=== PATIENT | female | born 1980 | race Caucasian/White ===

== ENCOUNTER 2017-07-14 14:52 | Emergency (ER) | payer BC ==
[2017-07-14 15:07] VITALS: BP 136/86
--- NOTE | 2017-07-14 15:08 | UC ---
FLU HPI - HPI Summary HPI Summary: Pt presents with sore throat, body aches, dry cough, and fatigue since yesterday. She tells me that she has co-workers who have been out sick with the flu and she would like to be tested. She has been taking tylenol for her symptoms with good relief. Denies fever, chills, SOB, chest pain, abdominal pain , n/v/d/c. - History of Current Complaint Chief Complaint: UCGeneralIllness Stated Complaint: FLU SYMPTOMS Time Seen by Provider: 07/14/17 15:08 Hx Obtained From: Patient Hx Last Menstrual Period: 07/07/17 Severity Currently: Moderate Severity Initially: Moderate Pain Intensity: 5 Pain Scale Used: 0-10 Numeric - Allergy/Home Medications Allergies/Adverse Reactions: Allergies Allergy/AdvReac Type Severity Reaction Status Date / Time pregabalin [From Lyrica] Allergy Swelling Verified 07/14/17 14:56 Of Face,Lips,& Throat Home Medications: Home Medications Cetirizine* [ZyrTEC 10 MG TAB*] 10 mg PO DAILY 07/14/17 [History Confirmed 07/14] LORazepam TAB(*) [Ativan 0.5 MG TAB (*)] 0.5 mg PO BEDTIME PRN 07/14/17 [ History Confirmed 07/14/17] raNITIdine HCl [Ranitidine HCl] 150 mg PO BID 07/14/17 [History Confirmed ] PMH/Surg Hx/FS Hx/Imm Hx - Additional Past Medical History Additional PMH: Allergies Previously Healthy: Yes - Surgical History Surgical History: Yes Surgery Procedure, Year, and Place: RT BREAST BIOPSY X2 - Family History Known Family History: Positive: Hypertension - Social History Occupation: Employed Full-time Lives: With Family Alcohol Use: Occasionally Substance Use Type: None Smoking Status (MU): Never Smoked Tobacco Review of Systems Constitutional: Fatigue, Other - Body aches Skin: Negative Eyes: Negative ENT: Sore Throat Respiratory: Cough Cardiovascular: Negative Gastrointestinal: Negative Neurological: Negative Psychological: Negative All Other Systems Reviewed And Are Negative: Yes Physical Exam - Summary Physical Exam Summary: GENERAL: NAD. WDWN. No pain distress. SKIN: No rashes, sores, ulcers, masses, lesions. HEENT: Head: AT/NC Eyes: EOM intact. Conjunctiva clear without inflammation or discharge. Ears: Hearing grossly normal. TMs intact, no bulging, erythema, or edema. Nose: Nasal mucosa pink and moist. NTTP maxillary and frontal sinus. Throat: Posterior oropharynx without exudates, erythema, or tonsillar enlargement. Uvula midline. NECK: Supple. Nontender. No lymphadenopathy. CHEST: CTAB. No r/r/w. No accessory muscle use. Breathing comfortably and in no distress. CV: RRR. Without m/r/g. Pulses intact. Brisk cap refill. NEURO: Alert. CN II-XII grossly intact. PSYCH: Age appropriate behavior. Triage Information Reviewed: Yes Vital Signs: Initial Vital Signs Temp 97.9 F 07/14/17 15:00 Pulse 76 07/14/17 15:00 Resp 16 07/14/17 15:00 BP 136/86 07/14/17 15:00 Pulse Ox 100 07/14/17 15:00 Flu Course/Dx - Course Course Of Treatment: POC flu negative. Advised rest, fluids, and tylenol prn. - Differential Dx/Diagnosis Provider Diagnoses: Viral syndrome Discharge - Discharge Plan Condition: Stable Disposition: HOME Patient Education Materials: Viral Syndrome (ED) Referrals: Brunilda Saucedo MD [Primary Care Provider] - Additional Instructions: If you develop a fever, shortness of breath, chest pain, new or worsening symptoms - please call your PCP or go to the ED. Your blood pressure was high at todays visit. Please see your primary provider within 4 weeks for recheck and re-evaluation.
== END 2017-07-14 15:37 | disposition home or self-care (01) ==
LOC: UCEAST 14:52
DX: B34.9 Viral infection, unspecified (principal); Z88.8 Allergy status to other drugs, medicaments and biological substances
CPT/HCPCS: 87502; 99211; G0463

== ENCOUNTER 2017-08-19 10:13 | Emergency (ER) | payer BC ==
[2017-08-19 10:26] VITALS: BP 134/75
--- NOTE | 2017-08-19 10:45 | UC ---
Dental HPI - HPI Summary HPI Summary: 37 y/o female presents to the urgent care c/o toothache in her left upper jaw since last night. Pt states her pain is from a broken molar which also has gross decay and caries. pain 8/10 associated w/ mild swelling. Pt called dentist this morning an her appt is for 08/30/2017. she has taken Aleve PO to alleviate symptoms, Last taken at 0800AM. Pt denies fever, SOB, trismus, chest pain, abdominal pain, N/V/D. - History of Current Complaint Chief Complaint: UCDentalProblem Stated Complaint: DENTAL PAIN Time Seen by Provider: 08/19/17 10:35 Hx Obtained From: Patient Hx Last Menstrual Period: 08/08/17 ?: No Onset/Duration: Gradual Onset, Lasting Days - 1 day, Still Present Severity: Mild Pain Intensity: 5 Pain Scale Used: 0-10 Numeric Aggravating Factor(s): Chewing Alleviating Factor(s): OTC Meds Related History: Swelling - mild - Allergies/Home Medications Allergies/Adverse Reactions: Allergies Allergy/AdvReac Type Severity Reaction Status Date / Time pregabalin [From Lyrica] Allergy Swelling Verified 07/30/17 14:11 Of Face,Lips,& Throat PMH/Surg Hx/FS Hx/Imm Hx Previously Healthy: Yes Other Endocrine History: Bening Thyroid tumor - Surgical History Surgical History: Yes Surgery Procedure, Year, and Place: RT BREAST BIOPSY X2. WISDOM TEETH - Family History Known Family History: Positive: Hypertension Family History: Breast cancer - Social History Occupation: Employed Full-time Lives: With Family Alcohol Use: Occasionally Substance Use Type: None Smoking Status (MU): Former Smoker Review of Systems Constitutional: Negative Skin: Negative Eyes: Negative ENT: Dental Pain - w/ mild swelling Respiratory: Negative Cardiovascular: Negative Gastrointestinal: Negative Genitourinary: Negative Motor: Negative Neurovascular: Negative Musculoskeletal: Negative Neurological: Negative Psychological: Negative Is Patient Immunocompromised?: No All Other Systems Reviewed And Are Negative: Yes Physical Exam - Summary Physical Exam Summary: Vital Signs Reviewed: Yes General: well developed. well nourished female sitting in the examining table w/ o any apparent distress Eyes: Positive: Conjunctiva Clear - PERRLA, EOMI, fundi grossly normal ENT: Positive: Normal ENT inspection, Hearing grossly normal, Pharyngeal erythema, TMs normal, Uvula midline. Negative: Tonsillar swelling, Tonsillar exudate, Trismus Dental: Positive: Percussion Tenderness @ - molar 14, Gross Decay/Caries @ - molar 14, mild Abscess @ - molar 14, Cervical Lymphadenopathy - B/L anterior, Neck: Positive: Supple, Nontender Respiratory: Positive: Chest non-tender, Lungs clear, Normal breath sounds, No respiratory distress Cardiovascular: Positive: RRR, No Murmur, Pulses Normal, Brisk Capillary Refill Abdomen Description: Positive: Nontender, No Organomegaly, Soft. Negative: CVA Tenderness (R), CVA Tenderness (L) Bowel Sounds: Positive: Present Musculoskeletal: Positive: Strength Intact, ROM Intact, No Edema Neurological Exam: Normal Psychological Exam: Normal Skin Exam: Normal Triage Information Reviewed: Yes Vital Signs: Initial Vital Signs Temp 97.4 F 08/19/17 10:23 Pulse 72 08/19/17 10:23 Resp 16 08/19/17 10:23 BP 134/75 08/19/17 10:23 Pulse Ox 100 08/19/17 10:23 Dental Complaint Course/Dx - Course Course Of Treatment: 37 y/o female presents to the urgent care c/o toothache in her left upper jaw since last night. Pt states her pain is from a broken molar which also has gross decay and caries. pain 12/17 associated w/ mild swelling. Pt called dentist this morning an her appt is for 08/30/2017. she has taken Aleve PO to alleviate symptoms, Last taken at 0800AM. Pt denies fever, SOB, trismus, chest pain, abdominal pain, N/V/D. Hx obtained. Pt w/ Percussion Tenderness @ - molar 14, Gross Decay/Caries @ - molar 14, mild Abscess @ - molar 14, Cervical Lymphadenopathy - B/L anterior. Pt with mild dental abscess on examination. Pt given viscous Lidocaine at the clinic to alleviate symptoms. Pt Rx Amoxicillin PO and Naproxen PO for pain. Pt strongly advised to f/u with Dentist as soon as possible further evaluation and treatment. Pt understood and agreed with plan of care. Left the clinic ambulating. - Differential Dx/Diagnosis Differential Diagnosis/Dx: Dental Abscess, Dental Caries, Fractured Tooth, Odontogenic Pain, Peridontic Disease, Peritonsillar Abcess Provider Diagnoses: 1- Mild dental abscess w/ fractured molar # 14. 2- Toothache Discharge - Sign-Out/Discharge Documenting (check all that apply): Discharge - Discharge Plan Condition: Stable Disposition: HOME Prescriptions: Amoxicillin PO (*) [Amoxicillin 500 MG CAP*] 500 mg PO TID #30 cap Naproxen TAB* [Naprosyn 250 mg TAB*] 250 mg PO Q8H PRN #30 tab PRN Reason: dental pain Patient Education Materials: Dental Abscess (ED), Toothache (ED) Referrals: Brunilda Saucedo MD [Primary Care Provider] - 2 Days Additional Instructions: 1-Please take full course of antibiotic to avoid resistance. 2- Take Naproxen as instructed after meals to alleviate pain and swelling. 3- F/u with your Dentist or Dental List provided as soon as possible for further treatment. 4- If symptoms do not improve or worsen please return to the urgent care or f/u with your PCP for further evaluation and treatment - Billing Disposition and Condition Condition: STABLE Disposition: HOME
[2017-08-19] MEDS ORDERED: Lidocaine 2% VISCOUS* 15 ML UDC SWISH SPIT ONE (10:54)
== END 2017-08-19 11:09 | disposition home or self-care (01) ==
LOC: UCEAST 10:13
DX: K04.7 Periapical abscess without sinus (principal); K03.81 Cracked tooth; D34 Benign neoplasm of thyroid gland; Z88.8 Allergy status to other drugs, medicaments and biological substances; Z87.891 Personal history of nicotine dependence
CPT/HCPCS: 99212; G0463

== ENCOUNTER 2017-10-13 20:55 | Emergency (ER) | payer BC ==
[2017-10-13 21:00] VITALS: BP 136/73
[2017-10-13] MEDS ORDERED: predniSONE TAB* 20 MG PO ONE (21:52)
[2017-10-13] MEDS ORDERED: diPHENhydraMINE PO* 50 MG PO ONE (21:52)
--- NOTE | 2017-10-13 22:32 | ED ---
Skin Complaint - HPI Summary HPI Summary: Complains of pruritic rash to bilateral lower extremities starting today. Denies fever, N/V, perioral swelling, sore throat, HOBSON, new meds, new lotions or detergents. History of same. - History of Current Complaint Chief Complaint: EDRashSkinAbscess Time Seen by Provider: 10/13/17 21:40 Stated Complaint: SKIN ISSUE Hx Obtained From: Patient Hx Last Menstrual Period: 08/08/17 Onset/Duration: Started Hours Ago Timing: Constant Onset Severity: Mild Current Severity: Mild Pain Intensity: 0 Pain Scale Used: 0-10 Numeric - Allergy/Home Medications Allergies/Adverse Reactions: Allergies Allergy/AdvReac Type Severity Reaction Status Date / Time pregabalin [From Lyrica] Allergy Swelling Verified 10/13/17 21:01 Of Face,Lips,& Throat PMH/Surg Hx/FS Hx/Imm Hx Endocrine/Hematology History: Denies: Hx Diabetes, Hx Thyroid Disease, Hx Anemia Cardiovascular History: Denies: Hx Hypertension, Hx Pacemaker/ICD Respiratory History: Denies: Hx Asthma, Hx Chronic Obstructive Pulmonary Disease (COPD) GI History: Denies: Hx Jaundice, Hx Ulcer History: Denies: Hx Renal Disease Musculoskeletal History: Denies: Hx Scoliosis Sensory History: Denies: Hx Hearing Aid Neurological History: Reports: Hx Headaches, Other Neuro Impairments/Disorders - HX OF MIGRAINES Psychiatric History: Reports: Hx Panic Disorder - Surgical History Surgery Procedure, Year, and Place: RT BREAST BIOPSY X2. WISDOM TEETH Infectious Disease History: No Infectious Disease History: Reports: Hx Shingles Denies: Hx Clostridium Difficile, Hx Hepatitis, Hx Human Immunodeficiency Virus (HIV), Hx of Known/Suspected MRSA, Hx Tuberculosis, Traveled Outside the [place] in Last 30 Days - Family History Known Family History: Positive: Hypertension Family History: Breast cancer - Social History Alcohol Use: Occasionally Substance Use Type: Reports: None Smoking Status (MU): Former Smoker Review of Systems Constitutional: Negative Eyes: Negative ENT: Negative Cardiovascular: Negative Respiratory: Negative Gastrointestinal: Negative Positive: no symptoms reported Musculoskeletal: Negative Positive: Rash Neurological: Negative Psychological: Normal All Other Systems Reviewed And Are Negative: Yes Physical Exam - Summary Physical Exam Summary: Maculopapular rash to bilateral lower extremities. No perioral or oropharyngeal swelling. Rash blanchable. 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 Very minimal erythema. No purulent drainage, or extra warmth. Was told dog was up-to-date on vaccinations. Patient has not been seen for dog bite. Triage Information Reviewed: Yes Vital Signs On Initial Exam: Initial Vitals Temp Pulse Resp BP Pulse Ox 97.4 F 84 16 136/73 100 10/13/17 20:56 10/13/17 20:56 10/13/17 20:56 10/13/17 20:56 10/13/17 20:56 Vital Signs Reviewed: Yes Appearance: Positive: Well-Appearing Skin: Positive: Warm Head/Face: Positive: Normal Head/Face Inspection Eyes: Positive: Normal ENT: Positive: Normal ENT inspection Neck: Positive: Supple Respiratory/Lung Sounds: Positive: Clear to Auscultation Cardiovascular: Positive: Normal Abdomen Description: Positive: Nontender Musculoskeletal: Positive: Normal Neurological: Positive: Normal Psychiatric: Positive: Normal AVPU Assessment: Alert - Teodoro Coma Scale Best Eye Response: 4 - Spontaneous Best Motor Response: 6 - Obeys Commands Best Verbal Response: 5 - Oriented Coma Scale Total: 15 Diagnostics - Vital Signs Vital Signs Temp Pulse Resp BP Pulse Ox 10/13/17 20:56 97.4 F 84 16 136/73 100 - Laboratory Lab Statement: Any lab studies that have been ordered have been reviewed, and results considered in the medical decision making process. Re-Evaluation - Re-Evaluation 1 Re-Evaluation Time: 22:47 Comment: Rash and bilateral lower extremities already self resolving prior to administration of prednisone. Course/Dx - Course Course Of Treatment: Complains of pruritic rash to bilateral lower extremities starting today. Denies fever, N/V, perioral swelling, sore throat, HOBSON, new meds , new lotions or detergents. History of same.Maculopapular rash to bilateral lower extremities. No perioral or oropharyngeal swelling. Rash blanchable. 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 Was told dog was up-to-date on vaccinations. Patient has not been seen for dog bite. Started on prednisone. Rx for prednisone and Augmentin. - Diagnoses Provider Diagnoses: Allergic reaction Discharge - Sign-Out/Discharge Documenting (check all that apply): Discharge/Admit/Transfer - Discharge Plan Condition: Stable Disposition: HOME Patient Education Materials: General Allergic Reaction (ED), Animal Bite (ED), Rabies (ED) Referrals: Brunilda Saucedo MD [Primary Care Provider] - Additional Instructions: Follow-up with primary care. Return to the ED for any new or worsening symptoms - Billing Disposition and Condition Condition: STABLE Disposition: Home
[2017-10-13] MEDS ORDERED: Amoxicillin/Clavulanate TAB* 875 MG PO ONE (22:44)
== END 2017-10-13 22:57 | disposition home or self-care (01) ==
LOC: ED 20:55
DX: T78.40XA Allergy, unspecified, initial encounter (principal); X58.XXXA Exposure to other specified factors, initial encounter; R21 Rash and other nonspecific skin eruption; Z88.0 Allergy status to penicillin; G43.909 Migraine, unspecified, not intractable, without status migrainosus; F41.0 Panic disorder [episodic paroxysmal anxiety]; Z82.49 Family history of ischemic heart disease and other diseases of the circulatory system; Z87.891 Personal history of nicotine dependence
CPT/HCPCS: 99282; A9270-GY; J7512